=== PATIENT | male | born 1965 | race Caucasian/White ===

== ENCOUNTER 2022-01-19 10:33 | Outpatient (CLI) | payer OTHER ==
[2022-01-19 13:04] LABS: #Basophils 0.1 10x3/uL (0.0-0.2); #Eosinphils 0.4 10x3/uL (0.0-0.5); #Monocytes 0.7 10x3/uL (0.0-1.1); #Neutrophils 3.4 10x3/uL (1.5-8.4); %Basophils 0.9 % (0.0-2.0); %Monocytes 10.4 % (0.0-10.0); Hemoglobin 14.9 g/dL (13.5-17.5); Mean Corpuscular Hemoglobin 31.4 pg (27.0-33.0); Mean Corpuscular Volume 89.9 fl (81.2-95.1); Mean Platelet Volume 9.8 fl (7.4-10.4); Platelet Count 235 10x3/uL (150-450); Red Blood Cell (RBC) Count 4.74 10x6/uL (4.32-5.72)
[2022-01-19 13:24] LABS: Anion Gap 14 mmol/L (10-20); BUN (Urea Nitrogen) 15 mg/dL (8.4-25.7); Calc. Creatinine Clearance 0 mL/min (70-130); Calcium 9.7 mg/dL (7.8-10.44); Carbon Dioxide 24 mmol/L (22-29); Chloride 105 mmol/L (98-107); Glucose 160 mg/dL (70-105); Potassium 4.2 mmol/L (3.5-5.1); Sodium 139 mmol/L (136-145)
== END 2022-01-19 10:34 | disposition home or self-care (01) ==
LOC: LABBT 10:33
PROVIDERS: ATTEND Orthopaedic Surgery
DX: Z01.818 Encounter for other preprocedural examination (principal); M75.111 Incomplete rotator cuff tear or rupture of right shoulder, not specified as traumatic; Z20.822 Contact with and (suspected) exposure to COVID-19
CPT/HCPCS: 80048; 85025; 93005; 93010; U0003; U0005

== ENCOUNTER 2022-01-24 06:54 | Day surgery (SDC) | payer OTHER ==
[2022-01-24] MEDS ORDERED: Midazolam HCl 2 mg/2 ml Vial ONE ×2 (08:35→10:23)
[2022-01-24] MEDS ORDERED: Fentanyl 100 MCG/2 ML VIAL ONE (08:35)
[2022-01-24] MEDS ORDERED: Ondansetron PF 4 MG/2 ML Vial IVP PRN (09:15)
[2022-01-24] MEDS ORDERED: HYDROcodone/Acetaminophen 5/325 mg Tablet PO PRN ×2 (09:15)
[2022-01-24] MEDS ORDERED: Zolpidem Tartrate 5 MG TAB PO PRN (09:15)
[2022-01-24] MEDS ORDERED: Promethazine HCl 25 MG/ML VIAL IM PRN (09:15)
[2022-01-24] MEDS ORDERED: Ropivacaine 0.2% 550 ML 550 ML NERVE BLCK SCH (09:15)
[2022-01-24] MEDS ORDERED: traMADol HCl 50 MG TAB PO PRN ×2 (09:15)
[2022-01-24] MEDS ORDERED: fentaNYL Citrate/PF 100 MCG/2 ML SYRINGE ONE (10:03)
[2022-01-24] MEDS ORDERED: HYDROmorphone 0.5 MG/0.5 ML SYRINGE ONE (10:04)
[2022-01-24] MEDS ORDERED: Phenylephrine 10 MG/ML VIAL ONE (10:13)
[2022-01-24] MEDS ORDERED: Lidocaine 4% Topical Sol 50 ML BOT ONE (10:13)
[2022-01-24] MEDS ORDERED: Sodium Chloride 0.9% 100 ML ONE (10:15)
[2022-01-24] MEDS ORDERED: CEFAZOLIN 2 GM VIAL ONE (10:15)
[2022-01-24] MEDS ORDERED: Ropivacaine 2% HCl/PF (20 MG/10 ML VIAL) ONE (10:23)
[2022-01-24] MEDS ORDERED: Dexamethasone 20 MG/5 ML VIAL ONE (10:23)
[2022-01-24] MEDS ORDERED: Lidocaine 1% PF 5 ML VIAL ONE (10:23)
[2022-01-24] MEDS ORDERED: Ondansetron PF 4 MG/2 ML Vial ONE (10:23)
[2022-01-24] MEDS ORDERED: Rocuronium Bromide 10 MG/ML (10ML VIAL) ONE (10:23)
[2022-01-24] MEDS ORDERED: Glycopyrrolate 0.2 MG/ML 5 ML SYRINGE ONE (10:23)
[2022-01-24] MEDS ORDERED: ePHEDrine 50 MG/ML VIAL ONE (10:23)
[2022-01-24] MEDS ORDERED: PROPOFOL 200 MG/20 ML VIAL ONE (10:23)
[2022-01-24] MEDS ORDERED: Xylocaine 1% w/ Epi 1:100K 10 ML VIAL ONE (10:46)
== END 2022-01-24 14:30 | disposition home or self-care (01) ==
LOC: SDC 06:54
PROVIDERS: ATTEND Orthopaedic Surgery
PROC: 0LQ14ZZ Repair Right Shoulder Tendon, Percutaneous Endoscopic Approach (ICD-10-PCS; principal; 2022-01-24)
DX: M75.111 Incomplete rotator cuff tear or rupture of right shoulder, not specified as traumatic (principal); M65.811 Other synovitis and tenosynovitis, right shoulder; I10 Essential (primary) hypertension; E11.9 Type 2 diabetes mellitus without complications; K21.9 Gastro-esophageal reflux disease without esophagitis; F17.210 Nicotine dependence, cigarettes, uncomplicated; E78.5 Hyperlipidemia, unspecified; Z79.4 Long term (current) use of insulin; Z79.82 Long term (current) use of aspirin; Z79.899 Other long term (current) drug therapy
CPT/HCPCS: 36416; A4306; C1713; J0690; J1100; J1170; J2250; J2370; J2405; J2704; J2795; J3010; J3490